=== PATIENT | female | born 1960 | race American Indian/Alaskan Native ===

== ENCOUNTER 2017-08-20 10:28 | Outpatient (CLI) | payer BC ==
--- NOTE | 2017-08-20 11:23 | Mammography Report ---
Bilateral one: Compared to 10/13/15. CAD study utilized. Findings: Heterogeneous breast parenchyma bilaterally. No mass or calcification. Benign axillary nodes. Impression: Benign findings. Annual followup recommended. BI-RADS CATEGORY: 2 = Benign ACR BI-RADS MAMMOGRAPHIC CODES: 0 = Needs additional imaging evaluation; 1 = Negative; 2 = Benign; 3 = Probably benign; 4 = Suspicious; 5 = Malignant; 6 = Known biopsy-proven malignancy COMMENT: 1. Dense breast tissue, i.e., adenosis, fibrocystic changes, etc., may obscure an underlying neoplasm. 2. Approximately 10% of cancers are not detected with mammography. 3. A negative mammography report should not delay biopsy if a clinically suspicious mass is present. COMMENT: Patient follow-up letters are generated in [employer].
--- NOTE | 2017-08-20 11:34 | XRay Report ---
ROUTINE CHEST, TWO VIEWS: HISTORY: Cough. The trachea, heart, mediastinal contour, lung gaytan and bony thorax are unremarkable. IMPRESSION: Unremarkable chest x-ray.
== END 2017-08-20 10:29 | disposition home or self-care (01) ==
LOC: MAMMO 10:28
PROVIDERS: ATTEND Internal Medicine
DX: Z12.31 Encounter for screening mammogram for malignant neoplasm of breast (principal); R05 Cough; Z80.3 Family history of malignant neoplasm of breast
CPT/HCPCS: 71020; G0202; 77067

== ENCOUNTER 2018-08-22 14:02 | Outpatient (CLI) | payer BC ==
--- NOTE | 2018-08-23 10:08 | Mammography Report ---
BILATERAL DIGITAL SCREENING MAMMOGRAM with CAD : 08/22/18 14:02:00 CLINICAL: Routine screening. COMPARISON:08/20/17 and 11/13/13 FINDINGS: The breasts are heterogeneously dense, which may obscure small masses. No mass, architectural distortion or suspicious calcifications. IMPRESSION: No mammographic evidence of malignancy. BI-RADS CATEGORY: 2 -- Benign RECOMMENDATION: Routine mammographic screening in one year. COMMENT: Patient follow-up letters are generated by our [employer] application.
== END 2018-08-22 14:03 | disposition home or self-care (01) ==
LOC: MAMMO 14:02
PROVIDERS: ATTEND Internal Medicine
DX: Z12.31 Encounter for screening mammogram for malignant neoplasm of breast (principal)
CPT/HCPCS: 77067

== ENCOUNTER 2019-10-02 10:36 | Outpatient (CLI) | payer BC ==
--- NOTE | 2019-10-03 11:47 | Mammography Report ---
DIGITAL SCREENING MAMMOGRAM WITH CAD, 10/02/2019 INDICATION: Routine screening mammography. TECHNIQUE: Digital bilateral 2D mammography was obtained in the craniocaudal and mediolateral obliq ue projections. This examination was interpreted with the benefit of Computer-Aided Detection analysi s. COMPARISON: 08/22/2018 FINDINGS: Breast Density: The breasts are heterogeneously dense, which may obscure small masses. A right upper inner focal asymmetry is new and requires additional imaging. No architectural distorti on or suspicious calcifications. There is no evidence of dominant mass, suspicious calcifications or architectural distortion in either breast. IMPRESSION: Right upper inner focal asymmetry requiring additional imaging. Recommend recall for righ t lateral medial and spot magnification views and right breast ultrasound if needed. Follow up recommendation: Special View: Mag Category 0: Incomplete. Needs additional imaging evaluation and/or prior mammograms for comparison. A "normal" or negative report should not discourage follow up or biopsy of a clinically significant f inding. A written summary of these findings will be mailed to the patient. The patient will be entered into a mammography reporting system which will generate a reminder letter for the patient's next appointmen t at the appropriate interval. The [employer] recommends yearly mammograms starting at age 40 and continuing as l aubrey as a woman is in good health. Breast MRI is recommended for women with an approximate 20-25% or greater lifetime risk of breast cancer, including women with a strong family history of breast or ova susan cancer or who have been treated for Hodgkin's disease. Signer Name: Aristides Durham MD Signed: 10/03/2019 11:42 AM Workstation Name: [id number]
== END 2019-10-02 10:37 | disposition home or self-care (01) ==
LOC: MAMMO 10:36
PROVIDERS: ATTEND Internal Medicine
DX: Z12.31 Encounter for screening mammogram for malignant neoplasm of breast (principal)
CPT/HCPCS: 77067

== ENCOUNTER 2021-03-31 11:30 | Outpatient (CLI) | payer BC ==
--- NOTE | 2021-03-31 13:44 | Mammography Report ---
DIGITAL DIAGNOSTIC MAMMOGRAM WITH CAD , 03/31/2021 CLINICAL INFORMATION / INDICATION: Patient had abnormal right mammogram in 2019. This is the first ma mmogram since that time. TECHNIQUE: Digital bilateral mammographic imaging was performed. This examination was interpreted with the benefit of Computer-aided Detection analysis. COMPARISON: 09/01/2019, 08/22/2018 FINDINGS: Breast Density: The breasts are heterogeneously dense, which may obscure small masses. No dominant mass, suspicious calcifications or architectural distortion in either breast. The small focal asymmetry previously noted in the right upper inner breast is no longer present. The remainder of the mammogram bilaterally is unremarkable and unchanged. IMPRESSION: No mammographic evidence of malignancy. Follow up recommendation: Routine yearly BI-RADS Category 2: Benign. A "normal" or negative report should not discourage follow up or biopsy of a clinically significant f inding. A written summary of these findings will be mailed to the patient. The patient will be entered into a mammography reporting system which will generate a reminder letter for the patient's next appointmen t at the appropriate interval. According to the [employer], yearly mammograms are recommended starting at age 40 and continuing as long as a woman is in good health. Breast MRI is recommended for women with an pollo roximately 20-25% or greater lifetime risk of breast cancer, including women with a strong family his tory of breast or ovarian cancer and women who have been treated for Hodgkin's disease. Signer Name: Heather Vale MD Signed: 03/31/2021 1:39 PM Workstation Name: [id number]
== END 2021-03-31 11:31 | disposition home or self-care (01) ==
LOC: MAMMO 11:30
PROVIDERS: ATTEND Internal Medicine
DX: R92.8 Other abnormal and inconclusive findings on diagnostic imaging of breast (principal)
CPT/HCPCS: 77066